=== PATIENT | female | born 1990 | race Caucasian/White ===

== ENCOUNTER 2016-05-06 10:09 | Emergency (ER) | payer MEDICAID ==
[2016-05-06 11:41] VITALS: BP 123/69; PULSE 77
--- NOTE | 2016-05-06 11:48 | PD ---
HPI Chief Complaint Post-dates labor check Date Seen: May 06, 2016 Time Seen: 11:47 Travel History International Travel<30 Days: No Contact w/Intl Traveler<30Days: No Known Affected Area: No History of Present Illness HPI 26-year-old at 42 and 1/7 weeks gestation today, EDC 04/21/16, confirmed by first trimester ultrasound at 8 weeks, presents to the ED for labor check today. She denies leakage of fluid, vaginal bleeding, and contractions. She feels baby moving regularly. She denies SMITH/N/V/D/fever/sick contacts/SOB/calf pain/dizziness/seeing spots. OB care is with Josee Fishman. Last office visit was Wednesday during which she had her membranes left and had spotting thereafter, not continued the next day. labs were faxed Early care was at [facility] in [place], patient moved to [place]. Most recent ultrasound was performed on 04/30/16 showing BPP 8/8, JOYCELYN 9.7, anterior position, cephalic presentation. Routine labs unremarkable. She had a GBS collected on 03/31/16 which was negative, states it was repeated in the office on Wednesday, no report exists. H&H on 03/31 was 11.1/34.5. She is Rh- . Glucose tolerance test was normal. Received Rhogram on 02/17/16 and also during the first trimester due to vaginal bleeding. She did have vaginal bleeding early first trimester that has since resolved. He is unsure about whether she would like epidural, asked many questions about pain management during labor process cystically how Bleeding When did it start Constant or come and go How much Bright red blood Any dark or bloody urine [place] Car accidents Are you sexually active Have you been having spotting after intercourse Any pain with intercourse Contractions How often Any pain 1/10, location, radiation, are you taking anything for it Have you felt contractions prior to this Any gush of fluid like your water broke- no When What did it look like Any blood SMITH/N/V/D/fever/sick contacts/SOB/calf pain/dizziness/seeing spots Are you feeling baby move This - Any high blood pressure If over 35 weeks- GBS status? Any infections or UTIs On past U/S- has anyone ever said anything about a low-lying placenta or placenta previa. Any abnormal labs so far? Past pregnancies- For each: What year How many weeks were you Babys weight or csxn Boy or girl Any issues during or after . What hospital were they born at. How is their health now. Clotting disorders in the past PMH: Surgical: Medications during : Allergies: Immunizations: Social: Where do you live (city) Living situation ( or single) Any depression in the past Alcohol Tobacco Drugs FH: If pt is truly in labor: Thoughts on epidural? Thoughts on tubal ligation? Get the strip info from OB [facility] on mom and baby Moms contraction intervals Baby: Baseline HR Variability Reactive Accels Decels Orders: -Click on the OB /PREPRESS TECHNICIAN tab under SETS -Click on labor and delivery admission or ED triage A/P 29-year-old at 37 weeks and 3 days who is a [facility] patient who presents to the ED in labor Intrauterine : Category 1 tracing Patient desires vaginal delivery Rupture of membranes at 2:30 AM today Start Pitocin Epidural for pain CBC essentially unremarkable. H/H 11.4 and 33.8. U/A pending IV fluids Monitor heart tones Routine care Previous GBS positive: Start IV penicillin per protocol Gestational hypertension Blood pressures elevated to 160s over 90s Rule out preeclampsia CBC, CMP, urinalysis, uric acid pending [facility] recommends delivery Procardia 20 mg by mouth Start magnesium Patient would like to have vaginal after . Nothing by mouth She had a consult for this on 09/22; risks and benefits were discussed and are in the EMR Epidural available No Pitocin Patient was informed that if the strip is not reassuring, or if she develops symptoms suggesting severe preeclampsia, or other unforeseen difficulties, it may be necessary to proceed with a delivery Patient understands and agrees. All questions were answered. BRENDA Iqbal [] Para: 0 : 2 History Past Medical History Medical History: Denies Significant Hx Obstetric History Obstetric History G1: 6 years ago, 10 week spontaneous G2: Present PREPRESS TECHNICIAN history unremarkable, negative Pap this Past Surgical History Surgical History: No Previous Surgery Family History Family History: Negative Social History Alcohol Use: No Tobacco Use: No (5 cigarettes per day until July 2015) Substance Abuse: No Allergies-Medications (Allergen,Severity, Reaction): Coded Allergies: No Known Allergies (Unverified , 05/06/16) Narrative Medication Prenatals Review of Systems Except as stated in HPI: all other systems reviewed are Neg Physical Exam Narrative GENERAL: Well-nourished, well-developed female in no acute distress. at bedside. SKIN: Warm and dry. No rashes. HEAD: Normocephalic and atraumatic. EYES: No scleral icterus. No injection or drainage. ENT: No nasal drainage noted. Mucous membranes pink. Airway patent. NECK: Supple, trachea midline. No JVD. CARDIOVASCULAR: Regular rate and rhythm without murmurs, gallops, or rubs. RESPIRATORY: Breath sounds equal bilaterally. No accessory muscle use. ABDOMEN/GI: Gravid to greater than 40 week, EFW 9 pounds GENITOURINARY: External Genitalia: intact and overall normal in appearance. There is a 0.5cm lesion possibly follicular irritation on the left inner thigh a few inches from the vagina Cervix: 23/50%/-2, midposition and medium consistency Presentation: Vertex Membranes: Intact Uterine Contractions: Irritability, no obvious contractions FHT's: Category: 1 Baseline: 140 Reactive: Yes to 160 Variability: yes Decels: None EXTREMITIES: No cyanosis. 1+ edema lower extremities bilaterally, normal 2+ pulses in upper and lower extremities. BACK: Nontender without obvious deformity. No CVA tenderness. NEUROLOGICAL: Awake and alert. Motor and sensory grossly within normal limits. Five out of 5 muscle strength in all muscle groups. Normal speech. Data Data Vital Signs Reviewed: Yes (98.2F, RR 20, P 94, BP 145/85) MDM Medical Record Reviewed: Yes Narrative Course / MDM 26-year-old at 42 and 1/7 weeks today, EDC 04/21/16. OB care with Josee Fishman. Presents to the OB ED requesting induction, labor check showing not in labor. Cervix 2-3/50%/-2. No contractions. Patient has been scheduled for induction this evening at 8:00PM. She is to return to that time, at which we will proceed with induction of labor. Intrauterine : Category 1 tracing Irritability without obvious contractions Vaginal delivery expected Induction of labor at 8 PM today Initiate induction with Cytotec Patient is unsure if she desires epidural for pain Routine care Previous GBS negative 03/13/16: Repeat GBS swab collected today We'll initiate IV penicillin per protocol if positive Rh negativ and history of first trimester bleed: Rhogam after delivery SDW Dr. Hernandez Diagnosis Diagnosis: Primary Impression: 42 weeks gestation of Disposition: 01 DISCHARGE HOME Condition: Stable Patient Instructions: Having Your Baby: The Labor Process (GEN) Prabha Garzon MD R1 May 06, 2016 11:48
[2016-05-07] MEDS ORDERED: PREN29TA PO (01:09)
== END 2016-05-06 11:54 | disposition home or self-care (01) ==
LOC: HOBED 10:09
DX: O42.92 Full-term premature rupture of membranes, unspecified as to length of time between rupture and onset of labor (principal); Z3A.42 42 weeks gestation of pregnancy
CPT/HCPCS: 59025; 87081; 87150

== ENCOUNTER 2016-05-06 19:40 | Inpatient (IN) | payer MEDICAID ==
[~2016-05-06] VITALS: Ht 162.6 cm; Wt 88.5 kg
[2016-05-06] MEDS ORDERED: LACTATED RINGER'S 1000 ML INJ 1,000 ML IV PRN (21:39)
--- NOTE | 2016-05-06 21:39 | HHI.HP ---
HPI Chief Complaint Patient is a who is here at 42 weeks and 1 day for induction of labor Date Seen: May 06, 2016 Time Seen: 21:35 Travel History International Travel<30 Days: No Contact w/Intl Traveler<30Days: No Known Affected Area: No History of Present Illness HPI Patient has had an uncomplicated course and she has been seen by Josee Fishman. Patient had an 8 week ultrasound was previously seen in [place] that established her due date. Her EDC is April 21. She was seen earlier today in the ED OB cervix was 2 cm 50% effaced and -3. She was brought in this evening for Cytotec. Rapid GBS was done this morning however it is still pending so will treat as the patient is GBS unknown. She did have a GBS done at 36 weeks that was negative. Para: 0 : 2 Miscarriage: 1 History Past Medical History Medical History: Denies Significant Hx Obstetric History Obstetric History sab x 1 Past Surgical History Surgical History: No Previous Surgery Family History Family History: Negative Social History Alcohol Use: No Tobacco Use: Yes (5 cigarettes per day) Substance Abuse: No Allergies-Medications (Allergen,Severity, Reaction): Coded Allergies: No Known Allergies (Unverified , 05/06/16) Narrative Medication vitamins Review of Systems Except as stated in HPI: all other systems reviewed are Neg Physical Exam Narrative GENERAL: Well-nourished, well-developed patient. SKIN: Warm and dry. HEAD: Normocephalic and atraumatic. EYES: No scleral icterus. No injection or drainage. ENT: No nasal drainage noted. Mucous membranes pink. Airway patent. NECK: Supple, trachea midline. No JVD. CARDIOVASCULAR: Regular rate and rhythm without murmurs, gallops, or rubs. RESPIRATORY: Breath sounds equal bilaterally. No accessory muscle use. BREASTS: Bilateral exam showed no masses , no retractions, no nipple discharge. ABDOMEN/GI: Abdomen soft, non-tender, bowel sounds present, no rebound, no guarding Gravid to [-] weeks size Fundal Height: [-40] GENITOURINARY: External Genitalia: intact and normal in appearance BUS glands: [-Normal] Cervix: [-2] Dilatation: [-] Effacement: [50-] Station: [-3-] Presentation: [Vertex-] Membranes: Intact Uterine Contractions: Irregular FHT's: Category: 1 Baseline: 130 Reactive: [-Moderate] Variability: Moderate Decels: Absent EXTREMITIES: No cyanosis or edema. BACK: Nontender without obvious deformity. No CVA tenderness. NEUROLOGICAL: Awake and alert. Motor and sensory grossly within normal limits. Five out of 5 muscle strength in all muscle groups. Normal speech. Data Data Vital Signs Reviewed: Yes Assessment/Plan Assessment and Plan at 42 weeks and 1 day. Plan to do a Cytotec tonight when staffing is available. Previously group B strep negative at 36 weeks. Repeat group B strep was done today but the results are still pending. Marian Hernandez MD May 06, 2016 21:39
[2016-05-06] MEDS ORDERED: OXYTOCIN 30 UNITS-500ML PREMIX 500 ML IV ONE (21:45)
[2016-05-06] MEDS ORDERED: LIDOCAINE HCL 1% 50 ML VIAL INFIL PRN (21:45)
[2016-05-06] MEDS ORDERED: SODIUM CHLORID 0.9% 500 ML INJ 500 ML IV PRN (21:45)
[2016-05-06] MEDS ORDERED: MISOPROSTOL 25 MCG SUPP VAGINAL ONE (21:45)
[2016-05-06] MEDS ORDERED: MINERAL OIL 10 ML VIAL TOPICAL PRN (21:45)
[2016-05-06] MEDS ORDERED: CITRIC ACID-SODIUM CITRATE LIQ 30 ML UDC PO SCH (21:45)
[2016-05-06] MEDS ORDERED: ONDANSETRON HCL 4 MG/2 ML VIAL IV PRN (21:45)
[2016-05-06] MEDS ORDERED: LIDOCAINE HCL 1% 50 ML VIAL I-DERMAL PRN (21:45)
[2016-05-06] MEDS ORDERED: SODIUM CHLORIDE 0.9% FLUSH 5 ML FLUSH IV FLUSH PRN (21:45)
[2016-05-06 21:47] VITALS: RESP 18
[2016-05-06 21:52] VITALS: BP 116/64; PULSE 77
[2016-05-06 21:55] VITALS: TEMP 98.1
[2016-05-06] MEDS ORDERED: SODIUM CHLOR 0.9% 1000 ML INJ 1,000 ML IV PRN (21:59)
[2016-05-06] MEDS: LACTATED RINGER'S 1000 ML INJ 1,000 ML IV SCH ×2 (22:40→23:01)
[2016-05-06 22:57] LABS: AUTOMATED NEUTROPHIL # 6.1 TH/MM3 (1.8-7.7); BASOPHIL % 0.1 % (0.0-2.0); EOSINOPHIL % 0.3 % (0.0-4.0); HEMATOCRIT 34.3 % (35.0-46.0); HEMO FLAGS DIFF FINAL; LYMPH % 20.5 % (9.0-44.0); LYMPHOCYTE # 1.8 TH/MM3 (1.0-4.8); MEAN CELL VOLUME 85.1 FL (80.0-100.0); MEAN CORPUSCULAR HEMOGLOBIN 29.6 PG (27.0-34.0); MEAN CORPUSCULAR HGB CONC 34.8 % (32.0-36.0); MONO % 8.8 % (0.0-8.0); NEUT % 70.3 % (16.0-70.0); PLATELET COUNT 242 TH/MM3 (150-450); RED BLOOD COUNT 4.03 MIL/MM3 (4.00-5.30); RED CELL DISTRIBUTION WIDTH 15.5 % (11.6-17.2); WHITE BLOOD COUNT 8.7 TH/MM3 (4.0-11.0)
[2016-05-06 23:13] LABS: BLOOD, URINE NEG (NEG); GLUCOSE,URINE NEG (NEG); KETONE, URINE NEG (NEG); MUCUS URINE FEW /lpf (OCC); NITRITE,URINE NEG (NEG); SQUAMOUS EPITHELIAL CELL URINE <1 /hpf (0-5); URINE COLOR LIGHT-YELLOW (YELLW/STRAW)
[2016-05-06 23:14] LABS: COMMENT (UR) CULT NOT INDICATED; CULTURE IF INDICATED CULT NOT INDICATED
[2016-05-06 23:23] VITALS: BP 122/70; PULSE 69
[2016-05-06 23:24] VITALS: RESP 18
[2016-05-07] VITALS (86 sets, daily range): BP systolic 62–127; BP diastolic 20–102; PULSE 68–112; RESP 18–20; TEMP 98.3–98.8
[2016-05-07] MEDS ORDERED: fentaNYL 2MCG-BUPIV 0.125% INJ 100 ML ONE (00:50)
[2016-05-07] MEDS ORDERED: PREN29TA PO (01:09)
[2016-05-07] MEDS ORDERED: fentaNYL 2MCG-BUPIV 0.125% 100 ML EPIDURAL SCH (02:15)
[2016-05-07] MEDS ORDERED: NO SYSTEM NARCOTICS XX PRN (02:15)
[2016-05-07] MEDS ORDERED: ePHEDrine/NS 25 MG/5 ML SYR IV PRN (02:15)
[2016-05-07] MEDS ORDERED: DO NOT ADMINISTER ANTICOAGULANTS XX PRN (02:15)
[2016-05-07] MEDS ORDERED: OXYTOCIN 30 UNITS/NS 500ML PREMIX IV SCH (02:45)
[2016-05-07] MEDS: LACTATED RINGER'S 1000 ML INJ 1,000 ML IV SCH ×2 (03:29→08:17)
--- NOTE | 2016-05-07 05:04 | HHI.PR ---
MANA[employer] Note Note Fhr category 1, moderate variability, no decelerations. Patient did no receive cytotec but began ko on her own. Cx 7cm , patient s/p epidural. Anticipate Marian Hernandez MD May 07, 2016 05:04
--- NOTE | 2016-05-07 07:36 | PD.LABORPN ---
Subjective Subjective 42 week 3 day gestation who arrived last night for induction of labor, plan was to give her Cytotec but she started ko on her own and went into spontaneous labor. Patient received an epidural sometime during the night and has advanced to 7 cm dilation. Objective Vital Signs Vital Signs Date Time Temp Pulse Resp B/P Pulse Ox O2 Delivery O2 Flow Rate FiO2 05/07/16 07:20 91 05/07/16 07:15 93 112/54 05/07/16 07:10 82 05/07/16 07:05 83 05/07/16 07:00 83 107/56 05/07/16 07:00 18 05/07/16 06:55 86 05/07/16 06:50 87 05/07/16 06:45 93 05/07/16 06:45 85 105/50 05/07/16 06:40 83 05/07/16 06:35 80 05/07/16 06:31 89 114/62 05/07/16 06:30 97 05/07/16 06:25 89 18 05/07/16 06:20 92 05/07/16 06:15 89 05/07/16 06:15 92 97/56 05/07/16 06:12 98.8 05/07/16 06:11 18 05/07/16 06:10 82 05/07/16 06:05 80 05/07/16 06:00 80 114/71 05/07/16 06:00 79 05/07/16 05:59 18 05/07/16 05:55 81 05/07/16 05:50 80 05/07/16 05:45 79 05/07/16 05:45 79 121/72 05/07/16 05:23 18 05/07/16 05:20 79 05/07/16 05:15 79 05/07/16 05:15 76 120/77 05/07/16 05:00 18 05/07/16 04:55 76 05/07/16 04:52 77 119/72 05/07/16 04:50 77 05/07/16 04:49 76 62/20 05/07/16 04:46 76 83/29 05/07/16 04:45 76 05/07/16 04:35 74 05/07/16 04:31 74 106/33 05/07/16 04:30 76 05/07/16 04:19 18 05/07/16 04:16 78 101/22 05/07/16 04:15 75 18 05/07/16 04:10 72 05/07/16 04:05 71 05/07/16 04:00 70 104/29 05/07/16 04:00 72 05/07/16 03:31 69 114/31 05/07/16 03:30 68 05/07/16 03:28 18 05/07/16 03:26 98.4 18 05/07/16 03:25 95 05/07/16 03:20 86 05/07/16 03:16 84 97/50 05/07/16 03:15 85 05/07/16 03:05 83 05/07/16 03:00 86 107/56 05/07/16 03:00 77 05/07/16 02:40 84 05/07/16 02:35 81 05/07/16 02:33 18 05/07/16 02:30 88 05/07/16 02:30 87 97/52 05/07/16 02:25 85 05/07/16 02:22 18 05/07/16 02:20 87 05/07/16 02:15 89 93/54 05/07/16 02:15 94 05/07/16 02:02 18 05/07/16 02:00 89 105/60 05/07/16 02:00 90 05/07/16 01:55 94 113/75 05/07/16 01:55 80 05/07/16 01:52 75 114/67 05/07/16 01:51 98 86/43 05/07/16 01:50 105 05/07/16 01:45 112 119/69 05/07/16 01:45 93 05/07/16 01:40 101 121/80 05/07/16 01:40 96 05/07/16 01:36 104 110/69 05/07/16 01:35 89 05/07/16 01:33 18 05/07/16 01:30 97 124/85 05/07/16 01:30 84 05/07/16 01:27 20 05/07/16 01:26 78 120/74 05/07/16 01:25 95 05/07/16 01:23 80 127/84 05/07/16 01:21 98 110/91 05/07/16 01:20 91 05/07/16 01:15 102 05/07/16 01:10 96 05/07/16 01:06 96 117/102 05/07/16 01:05 94 05/07/16 01:02 98.3 05/07/16 01:01 80 125/89 05/07/16 01:01 20 05/07/16 01:00 86 05/07/16 00:24 18 Objective Pelvic Exam: Cervix: [-] Dilatation: [-7-8] Effacement: [80-] Station: [-2-] Presentation: [vtx-] Membranes: [intact or ruptured] AROM - clear, but no fluid obtained from above the head Uterine Contractions: [-]q5-7 FHT's: Category: [1-] Baseline: [-140] Reactive: [moderate-] Variability: [moderate-] Decels: [absent-] Assessment/Plan Assessment and Plan Clear fluid on exam but difficult to ascertain fluid from above the head Will start pitocin for hypotonic labor pattern Marian Hernandez MD May 07, 2016 07:36
[2016-05-07] MEDS ORDERED: SODIUM CHLORIDE 0.9% FLUSH 5 ML FLUSH IV FLUSH SCH (09:00)
--- NOTE | 2016-05-07 09:50 | HHI.PR ---
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 Variable decelerations to 100 for 45 seconds. Pitocin discontinued with improvement. Patient repositioned. with improvement with variable decelerations to 120 x 15 seconds. Marian Hernandez MD May 07, 2016 09:50
[2016-05-07] MEDS ORDERED: DOCUSATE SODIUM 50 MG/SENNA 8.6 MG TAB PO PRN (12:30)
[2016-05-07] MEDS ORDERED: BENZOCAINE 20% TOPICAL SPRAY 60 ML CAN TOPICAL PRN (12:30)
[2016-05-07] MEDS ORDERED: ACETAMINOPHEN 325 MG TAB PO PRN (12:30)
[2016-05-07] MEDS ORDERED: WITCH HAZEL 50%/GLYCERIN 12.5% 40 PAD JAR TOPICAL PRN (12:30)
[2016-05-07] MEDS ORDERED: ZOLPIDEM TARTRATE 5 MG TAB PO PRN (12:30)
[2016-05-07] MEDS ORDERED: SODIUM CHLORIDE 0.9% FLUSH 5 ML FLUSH IV PRN (12:30)
[2016-05-07] MEDS ORDERED: ONDANSETRON ODT 4 MG TAB PO PRN (12:30)
[2016-05-07] MEDS ORDERED: oxyCODONE/ACETAMINOPHEN 5 MG/325 MG TAB PO PRN ×2 (12:30)
[2016-05-07] MEDS ORDERED: ALUMINUM/MAGNESIUM/SIMETH 30 ML CUP PO PRN (12:30)
--- NOTE | 2016-05-07 12:33 | PD.OB.DELI ---
Delivery Date: May 07, 2016 Anesthesia: Epidural Episiotomy: None Vaginal Delivery: Normal, Spontaneous Presentation: Occiput posterior, Vertex Nuchal Cord: x1 (rupture of cord during attempt at reduction ) Delayed cord clamping (45 sec): No Infant: Male One Minute : 6 Five Minute : 7 Weight: 4230 Infant Care: Suctioned, Responded to stimulation, Blow-by O2 delivered (CPAP, suction bulb) Placenta: Spontaneous delivery, Intact, 3 vessel cord Laceration: Vaginal laceration, 1 deg (vaginal laceration X2, repaired with interrupted sutures with 3-0 Vicryl) Repair: Vicryl interrupted Additional Information 26 year old (now P1) at 42/2 weeks gestation delivered vaginally at 12:02 PM under epidural anesthesia. AROM was at 7:33 AM with clear fluid. During attempt at cord reduction, the cord ruptured and was quickly clamped, estimated 25 cc's EBL from side prior to clamping. was suctioned with bulb on the perineum and dried, and then handed to resuscitation team. The baby responded to tactile stimulation and was given oxygen via non-rebreather mask and CPAP. Perinatologist Dr. Lazcano was called to the bedside to assess the baby. He was transferred to NICU in stable condition for further monitoring. Placenta was delivered at 12:12 PM spontaneously. Placenta was intact with a 3- vessel cord. The fundus was firm with massage and IV pitocin. There were two 1st degree vaginal lacerations that were repaired with 3-0 Vicryl via interrupted sutures. Delivery performed by Dr. Prabha Garzon, assisted by Dr. Castro, and attended by Dr. Amaro. Brian Castro MD May 07, 2016 12:33
[2016-05-07] MEDS: IBUPROFEN 600 MG TAB PO PRN ×2 (13:58→19:49)
--- NOTE | 2016-05-07 14:19 | PD.LABORPN ---
Subjective Subjective OB attending note This primiparous patient at 42 weeks was induced for postdates, she labored and progressed to complete pushed appropriately and then the second stage labor she delivered the head spontaneously the delivering physician felt for a nuchal cord on the patient and that was palpated and then in an attempt to pull the cord over the baby's head it was almost over the baby's head when the cord ruptured once that event occurred I rapidly entered the delivery procedure as I was standing to the side of the delivering resident.I Delivered the baby within seconds and the side of the ruptured cord was grasped with in 5- 10 seconds, and there was some loss of blood. Proximally 25 cc the cord was clamped baby taken to the resuscitation area. Weight 4230 g 6/ 7 the baby was pale and slightly hypotonic but did respond to stimulation and was crying. Neonatology was called the neonatologists evaluated the baby in the room was in a delivered intact spontaneously 2 small lacerations noted in the perineal area and right vaginal introitus both repaired with [id number] stitches were no other lacerations or problems estimated blood loss was 200 cc, . mother and baby stable Objective Vital Signs Vital Signs Date Time Temp Pulse Resp B/P Pulse Ox O2 Delivery O2 Flow Rate FiO2 05/07/16 13:45 92 122/74 05/07/16 07:20 91 05/07/16 07:15 93 112/54 05/07/16 07:15 94 05/07/16 07:10 82 05/07/16 07:05 83 05/07/16 07:00 83 107/56 05/07/16 07:00 18 05/07/16 07:00 91 05/07/16 06:55 86 05/07/16 06:50 87 05/07/16 06:45 93 05/07/16 06:45 85 105/50 05/07/16 06:40 83 05/07/16 06:35 80 05/07/16 06:31 89 114/62 05/07/16 06:30 97 05/07/16 06:25 89 18 05/07/16 06:20 92 05/07/16 06:15 89 05/07/16 06:15 92 97/56 Objective Carrington Amaro II, MD May 07, 2016 14:19
[2016-05-07] MEDS ORDERED: DIPHTH/TETANUS/ACEL PERTUSSIS (BOOSTER) 0.5 ML VIAL/PFS IM ONE (16:00)
[2016-05-07] MEDS ORDERED: MEASLES, MUMPS, RUBELLA VACCINE 0.5 ML VIAL SQ ONE (16:00)
--- NOTE | 2016-05-07 19:58 | HHI.OB ---
Subjective Post Day: [address] note Dr Castro and myself visited with the pt to discuss her delivery and answer any questions. I explained that some babies are born with the cord around the neck and that when we can we reduce that cord over the baby's head. In this case as we were attempting to do that the cord ruptured and broke in two. I told her we immediately delivered the baby and clamped off the open cord near baby's abdomen , and that the baby did lose some blood at the time but that has had little chcf effect and is readily addressed by the pediatric team. She understood our discussion and we answered her questions [ she had almost none] , I relayed to her that if she thought of any questions to have the nurses call me directly and I would come to see her . The pt seemed very friendly and cooperative and was appreciative that we had come to review her case Objective Vitals/I&O Vital Signs Date Time Temp Pulse Resp B/P Pulse Ox O2 Delivery O2 Flow Rate FiO2 05/07/16 13:45 92 122/74 05/07/16 07:20 91 05/07/16 07:15 93 112/54 05/07/16 07:15 94 05/07/16 07:10 82 05/07/16 07:05 83 05/07/16 07:00 83 107/56 05/07/16 07:00 18 05/07/16 07:00 91 05/07/16 06:55 86 05/07/16 06:50 87 05/07/16 06:45 93 05/07/16 06:45 85 105/50 05/07/16 06:40 83 05/07/16 06:35 80 05/07/16 06:31 89 114/62 05/07/16 06:30 97 05/07/16 06:25 89 18 05/07/16 06:20 92 05/07/16 06:15 89 05/07/16 06:15 92 97/56 05/07/16 06:12 98.8 05/07/16 06:11 18 05/07/16 06:10 82 05/07/16 06:05 80 05/07/16 06:00 80 114/71 05/07/16 06:00 79 05/07/16 05:59 18 05/07/16 05:55 81 05/07/16 05:50 80 05/07/16 05:45 79 05/07/16 05:45 79 121/72 05/07/16 05:23 18 05/07/16 05:20 79 05/07/16 05:15 79 05/07/16 05:15 76 120/77 05/07/16 05:00 18 05/07/16 04:55 76 05/07/16 04:52 77 119/72 05/07/16 04:50 77 05/07/16 04:49 76 62/20 05/07/16 04:46 76 83/29 05/07/16 04:45 76 05/07/16 04:35 74 05/07/16 04:31 74 106/33 05/07/16 04:30 76 05/07/16 04:19 18 05/07/16 04:16 78 101/22 05/07/16 04:15 75 18 05/07/16 04:10 72 05/07/16 04:05 71 05/07/16 04:00 70 104/29 05/07/16 04:00 72 05/07/16 03:31 69 114/31 05/07/16 03:30 68 05/07/16 03:28 18 05/07/16 03:26 98.4 18 05/07/16 03:25 95 05/07/16 03:20 86 05/07/16 03:16 84 97/50 05/07/16 03:15 85 05/07/16 03:05 83 05/07/16 03:00 86 107/56 05/07/16 03:00 77 05/07/16 02:40 84 05/07/16 02:35 81 05/07/16 02:33 18 05/07/16 02:30 88 05/07/16 02:30 87 97/52 05/07/16 02:25 85 05/07/16 02:22 18 05/07/16 02:20 87 05/07/16 02:15 89 93/54 05/07/16 02:15 94 05/07/16 02:02 18 05/07/16 02:00 89 105/60 05/07/16 02:00 90 05/07/16 01:55 94 113/75 05/07/16 01:55 80 05/07/16 01:52 75 114/67 05/07/16 01:51 98 86/43 05/07/16 01:50 105 05/07/16 01:45 112 119/69 05/07/16 01:45 93 05/07/16 01:40 101 121/80 05/07/16 01:40 96 05/07/16 01:36 104 110/69 05/07/16 01:35 89 05/07/16 01:33 18 05/07/16 01:30 97 124/85 05/07/16 01:30 84 05/07/16 01:27 20 05/07/16 01:26 78 120/74 05/07/16 01:25 95 05/07/16 01:23 80 127/84 05/07/16 01:21 98 110/91 05/07/16 01:20 91 05/07/16 01:15 102 05/07/16 01:10 96 05/07/16 01:06 96 117/102 05/07/16 01:05 94 05/07/16 01:02 98.3 05/07/16 01:01 80 125/89 05/07/16 01:01 20 05/07/16 01:00 86 05/07/16 00:24 18 05/06/16 23:24 18 05/06/16 23:23 69 122/70 05/06/16 21:55 98.1 05/06/16 21:52 77 116/64 05/06/16 21:47 18 Objective Remarks Medications and IVs Current Medications Medications (Trade) Dose Ordered Sig/[place] Route Start Time Stop Time Status Last Admin (NS Flush) 2 ml BID IV 05/07/16 21:00 (NS Flush) 2 ml UNSCH PRN IV 05/07/16 12:30 (Tylenol) 650 mg Q4H PRN PO 05/07/16 12:30 (Motrin) 600 mg Q6H PRN PO 05/07/16 12:30 05/07/16 13:58 (Percocet 5-325 Mg) 1 tab Q4H PRN PO 05/07/16 12:30 (Percocet 5-325 Mg) 2 tab Q4H PRN PO 05/07/16 12:30 (Americaine 20% Top Spr) 1 spray Q4H PRN TOPICAL 05/07/16 12:30 (Tucks Pads) 1 applic QID PRN TOPICAL 05/07/16 12:30 (Dina-Colace) 2 tab Q12H PRN PO 05/07/16 12:30 (Ambien) 5 mg HS PRN PO 05/07/16 12:30 (Mag-Al Plus Susp Liq) 15 ml Q8H PRN PO 05/07/16 12:30 (Zofran Odt) 4 mg Q6H PRN PO 05/07/16 12:30 (Flu (Quadrivalent) Vaccine Inj) 0.5 ml ONCE ONCE IM 05/08/16 10:00 05/08/16 10:01 Assessment/Plan Assessment and Plan at 42 weeks and 1 day. Plan to do a Cytotec tonight when staffing is available. Previously group B strep negative at 36 weeks. Repeat group B strep was done today but the results are still pending. Carrington Amaro II, MD May 07, 2016 19:58
[2016-05-07] MEDS ORDERED: SODIUM CHLORIDE 0.9% FLUSH 5 ML FLUSH IV SCH (21:00)
[2016-05-08] MEDS: IBUPROFEN 600 MG TAB PO PRN ×2 (03:59→17:57)
--- NOTE | 2016-05-08 07:58 | HHI.OB ---
Subjective Remarks 26 year old PPD 1 after vaginal delivery. She is up and moving around. Pain is well controlled with ibuprofen. She reports bleeding the amount of a menstrual period. She is . She plans on progesterone pill for contraception. She is amenable to starting progesterone pills at discharge, but may want to wait until her follow up post- visit. she is undecided about that. She has no chest pain, shortness of breath, or calf tenderness. She otherwise reports she is doing well. Objective Other Results General: Walking around room, comfortable CV: RRR, normal pulses Lungs: CTAB Abdomen: uterus firm, nontender : Lochia amount of menstrual period Ext: no calf tenderness Objective Remarks Medications and IVs Current Medications Medications (Trade) Dose Ordered Sig/[place] Route Start Time Stop Time Status Last Admin (NS Flush) 2 ml BID IV 05/07/16 21:00 (NS Flush) 2 ml UNSCH PRN IV 05/07/16 12:30 (Tylenol) 650 mg Q4H PRN PO 05/07/16 12:30 (Motrin) 600 mg Q6H PRN PO 05/07/16 12:30 05/08/16 03:59 (Percocet 5-325 Mg) 1 tab Q4H PRN PO 05/07/16 12:30 (Percocet 5-325 Mg) 2 tab Q4H PRN PO 05/07/16 12:30 (Americaine 20% Top Spr) 1 spray Q4H PRN TOPICAL 05/07/16 12:30 (Tucks Pads) 1 applic QID PRN TOPICAL 05/07/16 12:30 (Dina-Colace) 2 tab Q12H PRN PO 05/07/16 12:30 (Ambien) 5 mg HS PRN PO 05/07/16 12:30 (Mag-Al Plus Susp Liq) 15 ml Q8H PRN PO 05/07/16 12:30 (Zofran Odt) 4 mg Q6H PRN PO 05/07/16 12:30 (Flu (Quadrivalent) Vaccine Inj) 0.5 ml ONCE ONCE IM 05/08/16 10:00 05/08/16 10:01 Assessment/Plan Assessment and Plan 26 year old PPD 1 after vaginal delivery - Continue Ibuprofen for pain control - Encourage exclusive - Encourage ambulation - Plans on progesterone pill for control - Monitor lochia Discussed with Brian Angel MD R2 May 08, 2016 07:58
[2016-05-08] MEDS ORDERED: INFLUENZA VIRUS VACCINE (QUADRIVALENT) 0.5 ML SYR IM ONE (10:00)
[2016-05-08 11:00] VITALS: BP 111/76; PULSE 78; RESP 18; TEMP 97.9
[2016-05-08 19:40] VITALS: BP 128/78; PULSE 79; RESP 18; TEMP 98.1
[2016-05-09] MEDS ORDERED: IBUP-232 PO (06:06)
[2016-05-09] MEDS ORDERED: SENN1TAB PO (06:06)
--- NOTE | 2016-05-09 06:07 | HHI.DCPOC ---
Discharge Care Plan Diagnosis: (1) Vaginal delivery Goals to Promote Your Health * To prevent worsening of your condition and complications * To maintain your health at the optimal level Directions to Meet Your Goals Take your medications as prescribed Follow your dietary instruction Follow activity as directed Keep your appointments as scheduled Take your immunizations and boosters as scheduled If your symptoms worsen call your PCP, if no PCP go to Urgent Care Center or Emergency Room Smoking is Dangerous to Your Health. Avoid second hand smoke Call the 24-hour hour crisis hotline for domestic abuse at Brian Castro MD R2 May 09, 2016 06:07
--- NOTE | 2016-05-09 07:46 | HHI.OB ---
Subjective Post Day: 2 Remarks day #2. AFVSS overnight. Pain well controlled. Decreased lochia. Denies dysuria. No breast tenderness. She is feeding the baby via breast. Appetite good. No nausea or vomiting. Endorses flatus. No bowel movement. Ambulating well. Denies calf pain, shortness of breath, or cough. Otherwise, she is doing well this morning and has no other complaints. (Toño Bowden MD R1) Objective Vitals/I&O Vital Signs Date Time Temp Pulse Resp B/P Pulse Ox O2 Delivery O2 Flow Rate FiO2 05/08/16 19:40 98.1 79 18 128/78 05/08/16 11:00 111/76 05/08/16 11:00 97.9 78 18 Other Results General: Walking around room, comfortable CV: RRR, normal pulses Lungs: CTAB Abdomen: uterus firm, nontender : Lochia amount of menstrual period Ext: no calf tenderness Objective Remarks Medications and IVs Current Medications Medications (Trade) Dose Ordered Sig/[place] Route Start Time Stop Time Status Last Admin (NS Flush) 2 ml BID IV 05/07/16 21:00 (NS Flush) 2 ml UNSCH PRN IV 05/07/16 12:30 (Tylenol) 650 mg Q4H PRN PO 05/07/16 12:30 (Motrin) 600 mg Q6H PRN PO 05/07/16 12:30 05/08/16 17:57 (Percocet 5-325 Mg) 1 tab Q4H PRN PO 05/07/16 12:30 (Percocet 5-325 Mg) 2 tab Q4H PRN PO 05/07/16 12:30 (Americaine 20% Top Spr) 1 spray Q4H PRN TOPICAL 05/07/16 12:30 (Tucks Pads) 1 applic QID PRN TOPICAL 05/07/16 12:30 (Dina-Colace) 2 tab Q12H PRN PO 05/07/16 12:30 (Ambien) 5 mg HS PRN PO 05/07/16 12:30 (Mag-Al Plus Susp Liq) 15 ml Q8H PRN PO 05/07/16 12:30 (Zofran Odt) 4 mg Q6H PRN PO 3/9/17 12:30 (Toño Bowden MD R1) Assessment/Plan Assessment and Plan 26 year old PPD 2 after vaginal delivery - Continue Ibuprofen for pain control - Encourage exclusive - Encourage ambulation - Plans on progesterone pill for control - Monitor lochia - D/c home today [facility] OB attending (Toño Bowden MD R1) Attestation I agree with the discharge plan and have discussed with resident (Marian Hernandez MD) Toño Bowden MD R1 May 09, 2016 07:46 Marian Hernandez MD May 09, 2016 08:57
== END 2016-05-09 12:11 | disposition home or self-care (01) | DRG 775 ==
LOC: H2EA 19:40 → H1EA 05-07 14:36
PROVIDERS: ADMIT Obstetrics & Gynecology Obstetrics; ATTEND Obstetrics & Gynecology Obstetrics
PROC: 10E0XZZ Delivery of Products of Conception, External Approach (ICD-10-PCS; principal; 2016-05-07)
PROC: 0UQGXZZ Repair Vagina, External Approach (ICD-10-PCS; 2016-05-07)
PROC: 00HU33Z Insertion of Infusion Device into Spinal Canal, Percutaneous Approach (ICD-10-PCS; 2016-05-07)
PROC: 3E0R3CZ (ICD-10-PCS; 2016-05-07)
DX: O99.334 Smoking (tobacco) complicating childbirth (principal); F17.210 Nicotine dependence, cigarettes, uncomplicated; O48.0 Post-term pregnancy; O71.4 Obstetric high vaginal laceration alone; Z37.0 Single live birth; Z3A.42 42 weeks gestation of pregnancy; O69.81X0 Labor and delivery complicated by cord around neck, without compression, not applicable or unspecified; Z23 Encounter for immunization
CPT/HCPCS: 59025; 81001; 84112; 85025; 86900; 86901; 90686; 90715; J2590; J3010; J7120; Q2038